=== PATIENT | female | born 1965 | race Caucasian/White ===

== ENCOUNTER 2025-08-12 10:25 | Outpatient (AMB) | payer MEDICARE, MEDICAID, SELFPAY ==
--- NOTE | 2025-08-12 10:28 | MHC.OFFVIS ---
Intake Visit Reasons: 6 MONTH FU STROKE Accompanied by: Staff member Allergies No Known Allergies Allergy (Verified 08/12/25 10:37) Medication List - Last Reconciled 08/12/25 by Kirsten Rodriges CNP apixaban (Eliquis) 2.5 mg PO BID atorvastatin 80 mg PO DAILY gabapentin 300 mg PO TID levetiracetam 750 mg PO BID 30 days lidocaine 5% 1 patch topical DAILY methocarbamol 500 mg PO TID HPI Comments Details: She was living in [facility]. She was doing okay. She was fairly independent, for example she was able to cook by herself, but needed some help with dressing like putting right arm into coat. RUE spasticity was okay. Baclofen no longer on med list and taking methocarbamol three times a day instead. Working with PT 3x/week and ST 2x/week. Wearing R hand splint at night. Walking with walker, no falls. No seizures. Sleep was okay. Mood was okay and she enjoyed art projects. s/p RT for breast CA s/p lumpectomy. She had a left hemisphere, MCA territory infarct in October 2013. She is left with expressive aphasia and spastic right hemiplegia. She's currently in a care facility. She also has a history of pulmonary embolism and is on xarelto. She has had no seizures. She uses her left hand a lot and has been using her fall long periods and complains of numbness and tingling in the left hand frequently. [facility] Medical History (Updated 08/12/25 @ 10:37 by Kirsten Rodriges CNP) Breast cancer Pulmonary embolism Spastic hemiplegia Carpal tunnel syndrome of left wrist Stroke Review of Systems Const Denies chills, Denies daytime sleepiness, Reports difficulty sleeping, Denies fatigue, Denies fever(s), Denies frequent falls, Denies headache(s), Denies increased appetite, Denies poor appetite, Denies snoring, Denies weakness, Denies weight gain and Denies weight loss Eyes Denies loss of vision ENT Denies vertigo, Denies dizziness, Denies headache(s) and Reports neck pain Card Denies chest pain at rest, Denies chest pain with activity, Denies syncope, Denies leg edema, Denies palpitations, Reports dyspnea and Denies dyspnea on exertion Resp Denies cough, Reports dyspnea, Denies dyspnea on exertion and Denies snoring GI Denies abdominal pain, Denies constipation, Denies heartburn, Denies diarrhea and Denies nausea Denies urinary frequency, Denies urinary incontinence and Denies urinary urgency Musc Reports abnormal gait, Denies back pain, Denies myalgias, Reports arthralgias, Reports muscle weakness (R hemiplegia), Reports neck pain, Denies numbness and Denies tingling Neuro Reports abnormal gait, Denies vertigo, Denies dizziness, Denies syncope, Denies frequent falls, Denies headache(s), Denies lack of coordination, Denies loss of vision, Denies memory loss, Denies numbness, Denies Other visual disturbances, Denies restless legs, Denies seizure-like activity, Denies tingling, Denies paresthesias, Denies tremor(s) and Denies weakness Psych Reports anxiety, Reports depression, Denies auditory hallucinations, Denies memory loss and Denies visual hallucinations Endo Denies fatigue and Denies palpitations Physical Exam Neuro Other: Abnormal Neurological Findings:?Expressive aphasia. Spastic R hemiplegia. R AFO brace. Circumducting hemiparetic gait. Mental Status: alert with exxpressive aphasia. Mumbles few words. Follows commands. Tearful at times. Cranial Nerves: Pupils are equal, round, and reactive to light. External ocular muscles are intact. Visual allen are full, no ptosis. Face is symmetrical, no facial weakness or droop. Facial sensations are normal. Tongue protrudes in midline. Palate elevates symmetrically. Shoulder shrugging is normal Motor Examination: Spastic R hemiplegia. Shoulder abduction 3/5, rest 0/5. Right hip flexors 4-/5, quadriceps 5-/5. Right sided more than left hyperreflexia with extensor plantar response. Sensory Exam: Normal light touch, temperature, pinprick, vibration, and joint-position sensations. Rhomberg sign is absent. Gait Exam: As above with walker. Cerebellar Signs: [id number] Extrapyramidal System: No tremor, rigidity with normal facial expressions. No bradykinesia. No bradyphrenia. Normal arm swing and posture. No propulsion or retropulsion. Speech: Expressive aphasia. Results Reviewed Results Reviewed: NCV/EMG LTUE 04/03/19 Severe carpal tunnel syndrome on the left. Normal EMG in the left C5-T1 innervated muscles. Assessment & Plan Assessment & Plan (1) History of stroke with residual deficit: Code(s): I69.30 - Unspecified sequelae of cerebral infarction Category: Medical Plan: Continue gabapentin 300mg 1 capsule three times a day. Continue levetiracetam 750mg 1 tablet twice a day. She was in PT 3x/week and ST 2x/week - continue home exercises She has not had Botox since 07/2020 as insurance did not cover full cost, can consider again in the future if interested. Follow up in 6 months or sooner as needed. (2) Aphasia: Code(s): R47.01 - Aphasia Category: Medical (3) Spastic hemiplegia: Code(s): G81.10 - Spastic hemiplegia affecting unspecified side Category: Medical Qualifiers: Hemiplegia etiology: late effect of cerebrovascular disease Cerebrovascular disease type: unspecified Hemiplegia laterality: unspecified Qualified Code(s): I69.959 - Hemiplegia and hemiparesis following unspecified cerebrovascular disease affecting unspecified side (4) Carpal tunnel syndrome of left wrist: Code(s): G56.02 - Carpal tunnel syndrome, left upper limb Category: Medical Plan Meds tried: Botox, baclofen Coding Level of Care Code Est Pt Level 4 (10722) Diagnoses History of stroke with residual deficit I69.30 Aphasia R47.01 Spastic hemiplegia as late effect of cerebrovascular disease, unspecified cerebrovascular disease type, unspecified laterality I69.959 Hemiplegia etiology: late effect of cerebrovascular disease Cerebrovascular disease type: unspecified Hemiplegia laterality: unspecified Carpal tunnel syndrome of left wrist G56.02
== END 2025-08-12 10:51 | disposition home or self-care (01) ==
LOC: HO.HSM 10:25
PROVIDERS: PCP Internal Medicine; Visit Provider Registered Nurse
DX: I69.30 Unspecified sequelae of cerebral infarction (principal); R47.01 Aphasia; I69.959 Hemiplegia and hemiparesis following unspecified cerebrovascular disease affecting unspecified side; G56.02 Carpal tunnel syndrome, left upper limb
CPT/HCPCS: 99214

== ENCOUNTER → 2025-08-12 10:25 | Outpatient (BNVA) | payer MEDICARE, MEDICAID, SELFPAY | PROVIDERS: PCP Internal Medicine; Visit Provider Registered Nurse | DX: I69.30 Unspecified sequelae of cerebral infarction (principal); R47.01 Aphasia; G81.13 Spastic hemiplegia affecting right nondominant side; G56.02 Carpal tunnel syndrome, left upper limb | CPT/HCPCS: 99212 ==